=== PATIENT | female | born 1990 | race Caucasian/White ===

== ENCOUNTER 2016-09-01 18:34 | Emergency (ER) | payer BC, MEDICAID ==
[~2016-09-01] VITALS: Ht 167.6 cm; Wt 93.6 kg
[~2016-09-01 18:34] MED LIST: IBUP800T23 PO; METH750T2 PO
[2016-09-01 18:46] VITALS: BP 139/87; PULSE 97; RESP 16; TEMP 98.9; O2SAT 98
--- NOTE | 2016-09-01 18:53 | PD ---
HPI Chief Complaint: Injury Time Seen by Provider: 18:53 Travel History International Travel<30 days: No Contact w/Intl Traveler<30days: No Traveled to known affect area: No History of Present Illness HPI 25-year-old female comes into the emergency Department with acute contusion to the right second PIP joint. Patient states she was doing dishes and swung her hand, hitting a drawer that was pulled out, striking her right hand. Patient has severe pain at the PIP joint of the right hand. She has limited motion secondary to pain. Patient has no numbness or tingling. No obvious deformity is noted. Patient has no other complaints. She has no known allergies. PFSH Past Medical History Asthma: Yes Bipolar Disorder: Yes Anxiety: Yes Depression: Yes Cancer: No Cardiovascular Problems: No Diabetes: No Diminished Hearing: No Endocrine: No Genitourinary: No Hepatitis: No Hiatal Hernia: No Immune Disorder: No Musculoskeletal: No Neurologic: No Psychiatric: Yes Reproductive: Yes (ABD CRAMPING IRREGULAR MENSTRUALS) Respiratory: No Immunizations Current: Yes Thyroid Disease: No ?: Not : 3 Para: 3 Miscarriage: 0 : 0 Ovarian Cysts: Yes Tubal Ligation: Yes Past Surgical History AICD: No Genitourinary Surgery: Yes (ENDOSCOPY X 1-1 1/2 YRS AGO) Gynecologic Surgery: Yes (tubal) Hysterectomy: Yes Joint Replacement: No Pacemaker: No Social History Alcohol Use: No Tobacco Use: Yes (1/2 PPD) Substance Use: No Allergies-Medications (Allergen,Severity, Reaction): Coded Allergies: No Known Allergies (Unverified , 09/01/16) Reported Meds & Prescriptions Reported Meds & Active Scripts Active No Active Prescriptions or Reported Medications Review of Systems Except as stated in HPI: all other systems reviewed are Neg General / Constitutional: No: Fever Eyes: No: Visual changes HENT: No: Headaches Cardiovascular: No: Chest Pain or Discomfort Respiratory: No: Shortness of Breath Gastrointestinal: No: Abdominal Pain Genitourinary: No: Dysuria Musculoskeletal: No: Pain Skin: No Rash Neurologic: No: Weakness Psychiatric: No: Depression Endocrine: No: Polydipsia Hematologic/Lymphatic: No: Easy Bruising Physical Exam Narrative GENERAL: Patient is tearful and in moderate distress. SKIN: Warm and dry. Normal color. Normal turgor. No abrasion or laceration. Area of mild swelling and erythema located over the right second PIP joint of right hand. HEAD: Atraumatic. Normocephalic. EYES: Pupils equal and round. No scleral icterus. No injection or drainage. ENT: No nasal bleeding or discharge. Mucous membranes pink and moist. Airway is clear. NECK: Trachea midline. Supple. CARDIOVASCULAR: Regular rate and rhythm. RESPIRATORY: No accessory muscle use. MUSCULOSKELETAL: Extremities without clubbing, cyanosis, or edema. No obvious deformities. Patient has pain with palpation of the right hand second PIP joint. deformity or crepitus. Range of motion is limited secondary to pain. Patient is unable to make a fist due to her discomfort. NEUROLOGICAL: Awake and alert. No obvious cranial nerve deficits. Motor grossly within normal limits. Five out of 5 muscle strength in the arms and legs. Normal speech. PSYCHIATRIC: Appropriate mood and affect; insight and judgment normal. Data Data Last Documented VS Vital Signs Date Time Temp Pulse Resp B/P Pulse Ox O2 Delivery O2 Flow Rate FiO2 09/01/16 18:46 98.9 97 16 139/87 98 Orders Hand, Complete ([id number]) (09/01/16 18:53) Ice/Cold Pack (09/01/16 18:53) Ibuprofen (Motrin) (09/01/16 19:15) MDM Medical Decision Making Medical Screen Exam Complete: Yes Emergency Medical Condition: Yes Differential Diagnosis Right hand contusion. Right hand fracture. Dislocation. Narrative Course Patient is medically stable at time of exam. Ice pack is placed over the area in triage. X-ray of the right hand is ordered. Patient is given 800 mg ibuprofen by mouth. X-rays negative for fracture or dislocation. Romeo wrap placed to protect and support the area. Patient is given ibuprofen 800 mg 3 times daily with food #30. Patient is to use Romeo bandage as needed for comfort. Patient is to ice area frequently. Patient follow-up with her primary care physician or return to emergency Department with worsening symptoms as needed. Diagnosis Primary Impression: Contusion of right hand, initial encounter Referrals: Primary Care Physician Patient Instructions: Contusion in Adults (ED), General Instructions Additional Instructions: X-rays negative for fracture or dislocation. Romeo wrap placed to protect and support the area. Patient is given ibuprofen 800 mg 3 times daily with food #30. Patient is to use Romeo bandage as needed for comfort. Patient is to ice area frequently. Patient follow-up with her primary care physician or return to emergency Department with worsening symptoms as needed. Med/Other Pt SpecificInfo: Prescription(s) given Scripts Ibuprofen 800 Mg [id number] Mg PO Q8H PRN (Pain/Inflammation) #30 TAB Prov:Moy Siddiqui MD 09/01/16 Disposition: 01 DISCHARGE HOME Condition: Stable Cesar Kenny Sep 01, 2016 18:53
[2016-09-01] MEDS ORDERED: IBUPROFEN 800 MG TAB PO ONE (19:15)
[2016-09-01] MEDS ORDERED: IBUP800T23 PO (19:18)
--- NOTE | 2016-09-01 19:50 | RADHPO ---
EXAM DATE/TIME: 09/01/2016 18:57 [facility] COMPARISON: No previous studies available for comparison. INDICATIONS : Right hand pain from trauma. MEDICAL HISTORY : None. SURGICAL HISTORY : None. ENCOUNTER: Initial ACUITY: 1 day PAIN SCORE: 8/10 LOCATION: distal second metacarpal. FINDINGS: Three view examination of the right hand demonstrates no soft tissue swelling, dislocation, or fractu re. The carpal bones appear intact. The interphalangeal and metacarpophalangeal joints are intact. Bony mineralization is normal. CONCLUSION: No evidence of acute fracture or dislocation. Fabian Akbar MD on September 01, 2016 at 19:48 Board Certified Radiologist. This report was verified electronically.
== END 2016-09-01 19:30 | disposition home or self-care (01) ==
LOC: PHEFT 18:34
DX: S60.221A Contusion of right hand, initial encounter (principal); W22.8XXA Striking against or struck by other objects, initial encounter; Y93.G1 Activity, food preparation and clean up
CPT/HCPCS: 73130; 99283

== ENCOUNTER 2017-03-02 13:25 | Emergency (ER) | payer BC ==
[~2017-03-02] VITALS: Ht 165.1 cm; Wt 90.5 kg
[~2017-03-02 13:25] MED LIST changes: -METH750T2 PO
[2017-03-02] MEDS ORDERED: ONDANSETRON ODT 4 MG TAB PO ONE (13:45)
--- NOTE | 2017-03-02 13:45 | PD ---
HPI Chief Complaint: GI Complaint Time Seen by Provider: 13:35 Travel History International Travel<30 days: No Contact w/Intl Traveler<30days: No Traveled to known affect area: No History of Present Illness HPI Patient is a 26-year-old female presents emergency Department with her young child for evaluation of nausea vomiting abdominal cramping and diarrhea. She's also been having fever. She states that multiple family members in her household as well as the household of her relative who just came to visit have similar symptoms. She states that she's been gradually worsening over the past 3 days. She states she also been having some fever. No vaginal bleeding or vaginal discharge, some cough and some congestion. PFSH Past Medical History Asthma: Yes Bipolar Disorder: Yes Anxiety: Yes Depression: Yes Cancer: No Cardiovascular Problems: No Diabetes: No Diminished Hearing: No Endocrine: No Genitourinary: No Hepatitis: No Hiatal Hernia: No Immune Disorder: No Musculoskeletal: No Neurologic: No Psychiatric: Yes Reproductive: Yes (ABD CRAMPING IRREGULAR MENSTRUALS) Respiratory: No Immunizations Current: Yes Thyroid Disease: No Tetanus Vaccination: < 5 Years Influenza Vaccination: No ?: Not : 3 Para: 3 Miscarriage: 0 : 0 Ovarian Cysts: Yes Tubal Ligation: Yes Past Surgical History AICD: No Genitourinary Surgery: Yes (ENDOSCOPY X 1-1 1/2 YRS AGO) Gynecologic Surgery: Yes (tubal) Hysterectomy: Yes Joint Replacement: No Pacemaker: No Other Surgery: Yes Social History Alcohol Use: No Tobacco Use: No Substance Use: No Allergies-Medications (Allergen,Severity, Reaction): Coded Allergies: No Known Allergies (Unverified , 03/02/17) Reported Meds & Prescriptions Reported Meds & Active Scripts Active Phenergan (Promethazine HCl) 25 Mg Tablet 25 Mg PO Q6H PRN Zofran (Ondansetron HCl) 4 Mg Tab 4 Mg PO Q6HR PRN Review of Systems Except as stated in HPI: all other systems reviewed are Neg Physical Exam Narrative GENERAL: Well-developed well-nourished, nontoxic in no apparent distress SKIN: Focused skin assessment warm/dry. HEAD: Atraumatic. Normocephalic. EYES: Pupils equal and round. No scleral icterus. No injection or drainage. ENT: No nasal bleeding or discharge. Mucous membranes pink and moist. NECK: Trachea midline. No JVD. CARDIOVASCULAR: Regular rate and rhythm. No murmur appreciated. RESPIRATORY: No accessory muscle use. Clear to auscultation. Breath sounds equal bilaterally. GASTROINTESTINAL: Abdomen soft, non-tender, nondistended. Hepatic and splenic margins not palpable. No rebound no percussive tenderness, normal active bowel sounds, no CVA tenderness no Brenner sign, no tenderness at McBurney's point. MUSCULOSKELETAL: No obvious deformities. No clubbing. No cyanosis. No edema. NEUROLOGICAL: Awake and alert. No obvious cranial nerve deficits. Motor grossly within normal limits. Normal speech. PSYCHIATRIC: Appropriate mood and affect; insight and judgment normal. Data Data Orders Orders Ondansetron Odt (Zofran Odt) (03/02/17 13:45) [facility] Medical Decision Making Medical Screen Exam Complete: Yes Emergency Medical Condition: Yes Differential Diagnosis Gastritis, gastric enteritis, viral syndrome, influenza, food borne illness. Narrative Course Patient roomed emerged permit, appears well and in obvious distress. Her son was evaluated by another provider and was discharged after a by mouth challenge after Zofran. The same was performed with this patient and she did have some dry heaving go Down the majority of her fluid. I discussed with her that I was happy to order some labs and IV hydration and she would like however I don't think is necessary at this time. She would like to go home with symptomatic management. She stable for discharge. Diagnosis Primary Impression: Nausea & vomiting Additional Impressions: Gastroenteritis Viral syndrome Med/Other Pt SpecificInfo: Prescription(s) given Scripts Promethazine (Phenergan) 25 Mg Tablet 25 MG PO Q6H Y for NAUSEA OR VOMITING, #20 TAB 0 Refills Prov: Fausto Zuniga MD 03/02/17 Ondansetron (Zofran) 4 Mg Tab 4 MG PO Q6HR Y for NAUSEA OR VOMITING, #20 TAB 0 Refills Prov: Fausto Zuniga MD 03/02/17 Disposition: 01 DISCHARGE HOME Condition: Stable Fausto Zuniga MD Mar 02, 2017 13:45
[2017-03-02] MEDS ORDERED: ZOFR4TAB PO (14:49)
[2017-03-02] MEDS ORDERED: PROM25TA10 PO (14:50)
== END 2017-03-02 15:01 | disposition home or self-care (01) ==
LOC: PHED 13:25
DX: K52.9 Noninfective gastroenteritis and colitis, unspecified (principal); B34.9 Viral infection, unspecified
CPT/HCPCS: 99284

== ENCOUNTER 2017-03-03 10:24 | Emergency (ER) | payer BC ==
[~2017-03-03] VITALS: Ht 165.1 cm; Wt 91.0 kg
[~2017-03-03 10:24] MED LIST changes: -IBUP800T23 PO; +PROM25TA10 PO; +ZOFR4TAB PO
[2017-03-03 10:34] VITALS: BP 119/72; PULSE 80; RESP 18; TEMP 97.2; O2SAT 97
[2017-03-03] MEDS ORDERED: SODIUM CHLOR 0.9% 1000 ML INJ 1,000 ML IV SCH (10:56)
[2017-03-03] MEDS ORDERED: ONDANSETRON HCL 4 MG/2 ML VIAL IVP ONE (11:00)
[2017-03-03] MEDS ORDERED: SODIUM CHLORIDE 0.9% FLUSH 10 ML FLUSH IV FLUSH PRN (11:00)
[2017-03-03] MEDS ORDERED: FAMOTIDINE 20 MG/2 ML VIAL IV PUSH ONE (11:00)
[2017-03-03] MEDS ORDERED: SODIUM CHLOR 0.9% 1000 ML INJ 1,000 ML IV ONE (11:00)
[2017-03-03 11:03] VITALS: O2SAT 97
[2017-03-03 11:12] LABS: AUTOMATED NEUTROPHIL # 4.3 TH/MM3 (1.8-7.7); BASOPHIL % 0.6 % (0.0-2.0); EOSINOPHIL # 0.3 TH/MM3 (0-0.4); EOSINOPHIL % 3.8 % (0.0-4.0); HEMATOCRIT 45.4 % (35.0-46.0); HEMO FLAGS DIFF FINAL; LYMPH % 24.2 % (9.0-44.0); LYMPHOCYTE # 1.7 TH/MM3 (1.0-4.8); MEAN CELL VOLUME 82.7 FL (80.0-100.0); MEAN CORPUSCULAR HEMOGLOBIN 26.9 PG (27.0-34.0); MEAN CORPUSCULAR HGB CONC 32.5 % (32.0-36.0); MONO % 10.6 % (0.0-8.0); NEUT % 60.8 % (16.0-70.0); PLATELET COUNT 305 TH/MM3 (150-450); RED BLOOD COUNT 5.49 MIL/MM3 (4.00-5.30); RED CELL DISTRIBUTION WIDTH 13.6 % (11.6-17.2)
--- NOTE | 2017-03-03 11:22 | PD ---
HPI Chief Complaint: GI Complaint Time Seen by Provider: 10:48 Travel History International Travel<30 days: No Contact w/Intl Traveler<30days: No Traveled to known affect area: No History of Present Illness HPI The patient is a 26-year-old female who presents to the emergency department for nausea, vomiting, and diarrhea. The patient is a 3 to four-day history of cough and cold symptoms, states her family had similar symptoms. However, she states that her children symptoms only lasted 1-2 days. The patient has had some persistent nausea and vomiting. The patient was unable to get an appointment with her primary physician, was seen in the emergency department yesterday where she was administered Zofran and discharged home on Zofran and Phenergan. The patient was able to obtain the Phenergan, however, did not picker tender the Zofran secondary to financial issues. The patient states she was unable to afford the $80 for Zofran. The patient states she took the Phenergan, fell asleep, however, when she awakened she was still nauseous. She does complain of diarrhea which is loose and watery. She also notes intermittent abdominal cramping with mild pain secondary to vomiting. She has a history of hysterectomy, denies . She denies any dysuria. Symptoms are mild to moderate, possibly exacerbated by recent viral infection and/or gastroenteritis. PFSH Past Medical History Asthma: Yes Bipolar Disorder: Yes Anxiety: Yes Depression: Yes Cancer: No Cardiovascular Problems: No Diabetes: No Diminished Hearing: No Endocrine: No Genitourinary: No Hepatitis: No Hiatal Hernia: No Immune Disorder: No Musculoskeletal: No Neurologic: No Psychiatric: Yes Reproductive: Yes (ABD CRAMPING IRREGULAR MENSTRUALS) Respiratory: No Immunizations Current: Yes Thyroid Disease: No Tetanus Vaccination: < 5 Years Influenza Vaccination: No ?: Not : 3 Para: 3 Miscarriage: 0 : 0 Ovarian Cysts: Yes Tubal Ligation: Yes Past Surgical History AICD: No Genitourinary Surgery: Yes (ENDOSCOPY X 1-1 1/2 YRS AGO) Gynecologic Surgery: Yes (tubal) Hysterectomy: Yes Joint Replacement: No Pacemaker: No Other Surgery: Yes Social History Alcohol Use: No Tobacco Use: No Substance Use: No Allergies-Medications (Allergen,Severity, Reaction): Coded Allergies: No Known Allergies (Unverified , 03/03/17) Reported Meds & Prescriptions Reported Meds & Active Scripts Active Phenergan (Promethazine HCl) 25 Mg Tablet 25 Mg PO Q6H PRN Zofran (Ondansetron HCl) 4 Mg Tab 4 Mg PO Q6HR PRN Review of Systems Except as stated in HPI: all other systems reviewed are Neg General / Constitutional: No: Fever Gastrointestinal: Positive: Nausea, Vomiting, Diarrhea, Abdominal Pain ( secondary to vomiting, intermittent, cramping) Genitourinary: No: Dysuria Musculoskeletal: Positive: Weakness, No: Myalgias, Arthralgias Physical Exam Narrative GENERAL: Awake, alert, pleasant 26-year-old female who appears her stated age and is in no acute respiratory distress. SKIN: Focused skin assessment warm/dry. HEAD: Atraumatic. Normocephalic. EYES: Pupils equal and round. No scleral icterus. No injection or drainage. ENT: No nasal bleeding or discharge. Slightly dry mucous membranes. NECK: Trachea midline. No JVD. CARDIOVASCULAR: Regular rate and rhythm. No murmur appreciated. RESPIRATORY: No accessory muscle use. Clear to auscultation. Breath sounds equal bilaterally. GASTROINTESTINAL: Abdomen soft, non-tender, nondistended. Negative Brenner's. Negative McBurney's. MUSCULOSKELETAL: No obvious deformities. No clubbing. No cyanosis. No edema. NEUROLOGICAL: Awake and alert. No obvious cranial nerve deficits. Motor grossly within normal limits. Normal speech. PSYCHIATRIC: Appropriate mood and affect; insight and judgment normal. Data Data Last Documented VS Vital Signs Date Time Temp Pulse Resp B/P (MAP) Pulse Ox O2 Delivery O2 Flow Rate FiO2 03/03/17 11:03 97 Room Air 03/03/17 10:34 97.2 80 18 119/72 (88) Orders Orders Complete Blood Count With Diff (03/03/17 10:56) Comprehensive Metabolic Panel (03/03/17 10:56) Lipase (03/03/17 10:56) Urinalysis - C+S If Indicated (03/03/17 10:56) Iv Access Insert/Monitor (03/03/17 10:56) Ecg Monitoring (03/03/17 10:56) Oximetry (03/03/17 10:56) Ondansetron Inj (Zofran Inj) (03/03/17 11:00) Sodium Chlor 0.9% 1000 Ml Inj (Ns 1000 M (03/03/17 10:56) Sodium Chloride 0.9% Flush (Ns Flush) (03/03/17 11:00) Famotidine Inj (Pepcid Inj) (03/03/17 11:00) Sodium Chlor 0.9% 1000 Ml Inj (Ns 1000 M (03/03/17 11:00) Labs Laboratory Tests Test 03/03/17 11:05 03/03/17 12:20 White Blood Count 7.0 TH/MM3 Red Blood Count 5.49 MIL/MM3 Hemoglobin 14.8 GM/DL Hematocrit 45.4 % Mean Corpuscular Volume 82.7 FL Mean Corpuscular Hemoglobin 26.9 PG Mean Corpuscular Hemoglobin Concent 32.5 % Red Cell Distribution Width 13.6 % Platelet Count 305 TH/MM3 Mean Platelet Volume 8.2 FL Neutrophils (%) (Auto) 60.8 % Lymphocytes (%) (Auto) 24.2 % Monocytes (%) (Auto) 10.6 % Eosinophils (%) (Auto) 3.8 % Basophils (%) (Auto) 0.6 % Neutrophils # (Auto) 4.3 TH/MM3 Lymphocytes # (Auto) 1.7 TH/MM3 Monocytes # (Auto) 0.7 TH/MM3 Eosinophils # (Auto) 0.3 TH/MM3 Basophils # (Auto) 0.0 TH/MM3 CBC Comment DIFF FINAL Differential Comment Blood Urea Nitrogen 13 MG/DL Creatinine 0.93 MG/DL Random Glucose 96 MG/DL Total Protein 8.2 GM/DL Albumin 3.5 GM/DL Calcium Level 8.4 MG/DL Alkaline Phosphatase 110 U/L Aspartate Amino Transf (AST/SGOT) 35 U/L Alanine Aminotransferase (ALT/SGPT) 37 U/L Total Bilirubin 0.4 MG/DL Sodium Level 135 MEQ/L Potassium Level 3.5 MEQ/L Chloride Level 101 MEQ/L Carbon Dioxide Level 26.3 MEQ/L Anion Gap 8 MEQ/L Estimat Glomerular Filtration Rate 72 ML/MIN Lipase 129 U/L Urine Collection Type CLEAN CATCH Urine Color YELLOW Urine Turbidity CLEAR Urine pH 6.0 Urine Specific [place] 1.034 Urine Protein 30 mg/dL Urine Glucose (UA) NEG mg/dL Urine Ketones NEG mg/dL Urine Occult Blood NEG Urine Nitrite NEG Urine Bilirubin NEG Urine Leukocyte Esterase SMALL Urine RBC 0-3 /hpf Urine WBC 3-5 /hpf Urine Squamous Epithelial Cells 6-8 /hpf Urine Bacteria OCC /hpf Microscopic Urinalysis Comment CULT NOT INDICATED Urine Collection Time 12:20 [facility] Medical Decision Making Medical Screen Exam Complete: Yes Emergency Medical Condition: Yes Medical Record Reviewed: Yes Interpretation(s) Laboratory Tests Test 03/03/17 11:05 03/03/17 12:20 White Blood Count 7.0 TH/MM3 Red Blood Count 5.49 MIL/MM3 Hemoglobin 14.8 GM/DL Hematocrit 45.4 % Mean Corpuscular Volume 82.7 FL Mean Corpuscular Hemoglobin 26.9 PG Mean Corpuscular Hemoglobin Concent 32.5 % Red Cell Distribution Width 13.6 % Platelet Count 305 TH/MM3 Mean Platelet Volume 8.2 FL Neutrophils (%) (Auto) 60.8 % Lymphocytes (%) (Auto) 24.2 % Monocytes (%) (Auto) 10.6 % Eosinophils (%) (Auto) 3.8 % Basophils (%) (Auto) 0.6 % Neutrophils # (Auto) 4.3 TH/MM3 Lymphocytes # (Auto) 1.7 TH/MM3 Monocytes # (Auto) 0.7 TH/MM3 Eosinophils # (Auto) 0.3 TH/MM3 Basophils # (Auto) 0.0 TH/MM3 CBC Comment DIFF FINAL Differential Comment Blood Urea Nitrogen 13 MG/DL Creatinine 0.93 MG/DL Random Glucose 96 MG/DL Total Protein 8.2 GM/DL Albumin 3.5 GM/DL Calcium Level 8.4 MG/DL Alkaline Phosphatase 110 U/L Aspartate Amino Transf (AST/SGOT) 35 U/L Alanine Aminotransferase (ALT/SGPT) 37 U/L Total Bilirubin 0.4 MG/DL Sodium Level 135 MEQ/L Potassium Level 3.5 MEQ/L Chloride Level 101 MEQ/L Carbon Dioxide Level 26.3 MEQ/L Anion Gap 8 MEQ/L Estimat Glomerular Filtration Rate 72 ML/MIN Lipase 129 U/L Urine Collection Type CLEAN CATCH Urine Color YELLOW Urine Turbidity CLEAR Urine pH 6.0 Urine Specific [place] 1.034 Urine Protein 30 mg/dL Urine Glucose (UA) NEG mg/dL Urine Ketones NEG mg/dL Urine Occult Blood NEG Urine Nitrite NEG Urine Bilirubin NEG Urine Leukocyte Esterase SMALL Urine RBC 0-3 /hpf Urine WBC 3-5 /hpf Urine Squamous Epithelial Cells 6-8 /hpf Urine Bacteria OCC /hpf Microscopic Urinalysis Comment CULT NOT INDICATED Urine Collection Time 12:20 Differential Diagnosis Differential diagnosis includes gastroenteritis, pancreatitis, gastritis, viral syndrome, influenza, pyelonephritis. Narrative Course IV was established, labs are drawn and sent, and the patient was placed on cardiac telemetry monitoring and continuous pulse oximetry monitoring. The patient was administered 2 L of IV fluids, Zofran, and Zantac. test was not performed as patient has history of hysterectomy. The patient was reevaluated at 12:05 PM, her nausea had improved. The patient was given a by mouth challenge with oral Gatorade. Laboratory evaluation is unremarkable. The patient was reevaluated at 12:50 PM, her symptoms have improved. She will be discharged home and provided a work excuse for 2 days. Diagnosis Primary Impression: Gastroenteritis Patient Instructions: General Instructions Additional Instructions: Work excuse for 2 days if needed. Clear liquid diet and advance as tolerated. Follow-up with your primary physician. Med/Other Pt SpecificInfo: No Change to Meds Disposition: 01 DISCHARGE HOME Condition: Stable Misael Najera MD Mar 03, 2017 11:22
[2017-03-03 11:24] LABS: CHLORIDE 101 MEQ/L (98-107); POTASSIUM 3.5 MEQ/L (3.5-5.1); SODIUM (NA) 135 MEQ/L (136-145)
[2017-03-03 11:28] LABS: ANION GAP 8 MEQ/L (5-15); BICARBONATE 26.3 MEQ/L (21.0-32.0); BLOOD UREA NITROGEN 13 MG/DL (7-18)
[2017-03-03 11:31] LABS: ALT (GPT) 37 U/L (10-53); AST (GOT) 35 U/L (15-37); GLOMERULAR FILTRATION RATE 72 ML/MIN (>89)
[2017-03-03 11:32] LABS: TOTAL BILIRUBIN ADULT 0.4 MG/DL (0.2-1.0)
[2017-03-03 11:34] LABS: ALKALINE PHOSPHATASE 110 U/L (45-117)
[2017-03-03 12:30] LABS: BLOOD, URINE NEG (NEG); GLUCOSE,URINE NEG (NEG); KETONE, URINE NEG (NEG); NITRITE,URINE NEG (NEG)
[2017-03-03 12:38] LABS: METHOD OF COLLECTION CLEAN CATCH; URINE COLOR YELLOW (YELLW/STRAW)
[2017-03-03 12:39] LABS: BACTERIA, URINE OCC /hpf; COMMENT (UR) CULT NOT INDICATED; CULTURE IF INDICATED CULT NOT INDICATED; RBC, URINE 0-3 /hpf (0-3)
[2017-03-03 13:36] VITALS: BP 107/54; PULSE 69; RESP 16; O2SAT 99
== END 2017-03-03 13:42 | disposition home or self-care (01) ==
LOC: PHED 10:24
DX: K52.9 Noninfective gastroenteritis and colitis, unspecified (principal)
CPT/HCPCS: 80053; 81001; 83690; 85025; 96361; 96374; 96375; 99284; J2405; J7030